=== PATIENT | female | born 1955 | race Caucasian/White ===

== ENCOUNTER 2023-05-02 07:25 | Day surgery (SDC) | payer MEDICARE, BC ==
[~2023-05-02 07:25] MED LIST: Fluorouracil 100 MG, Enoxaparin 25 MG, EPINEPHrine 0.3 MG in Ophthalmic Irrigation Solu... IRR SCH
[2023-05-02] MEDS ORDERED: fentaNYL 50 mcg/mL 1 mL Vial ONE (07:45)
[2023-05-02] MEDS ORDERED: PHENYLephrine 2.5% Ophth Soln 15 ml Bottle ONE (07:52)
[2023-05-02] MEDS ORDERED: Cyclopentolate 2% Opth Drop 15 ML BOT ONE (07:52)
[2023-05-02] MEDS ORDERED: CEFAZOLIN 1 GM VIAL ONE (08:49)
[2023-05-02] MEDS ORDERED: PROPOFOL 200 MG/20 ML VIAL ONE (08:49)
[2023-05-02] MEDS ORDERED: Bupivacaine 0.75% 10 ML VIAL ONE (08:49)
[2023-05-02] MEDS ORDERED: Lidocaine 4% PF 5 ML AMP ONE (08:49)
[2023-05-02] MEDS ORDERED: Lidocaine 1% PF 5 ML VIAL ONE (08:49)
[2023-05-02] MEDS ORDERED: Indocyanine Green 25 MG/10 ML VIAL ONE (08:49)
[2023-05-02] MEDS ORDERED: Maxitrol 0.1% Opth Oint 3.5 GM TUBE ONE (08:49)
[2023-05-02] MEDS ORDERED: Triamcinolone 40 MG/ML VIAL ONE (08:49)
== END 2023-05-02 10:18 | disposition home or self-care (01) ==
LOC: SDC 07:25
PROVIDERS: ATTEND Ophthalmology Retina Specialist
PROC: 08T53ZZ Resection of Left Vitreous, Percutaneous Approach (ICD-10-PCS; principal; 2023-05-02)
PROC: 08NF3ZZ Release Left Retina, Percutaneous Approach (ICD-10-PCS; 2023-05-02)
DX: H35.342 Macular cyst, hole, or pseudohole, left eye (principal)
CPT/HCPCS: 67025; 67042; J3010; J0171; J0690; J1650; J2704; J3301; J3490; J9190